=== PATIENT | female | born 1945 | race Caucasian/White ===

== ENCOUNTER 2018-03-04 12:21 | Emergency (ER) | payer OTHER ==
[2018-03-04] MEDS: KETOROLAC 60 MG INJ IM (15:13)
[2018-03-04] MEDS: DIPHTH/TET/ACEL PERTUSS (ADULT) 0.5 ML VIAL IM* (15:14)
== END 2018-03-04 15:35 | disposition home or self-care (01) ==
LOC: FTE 12:21
DX: S09.90XA Unspecified injury of head, initial encounter (principal); S13.9XXA Sprain of joints and ligaments of unspecified parts of neck, initial encounter; S80.211A Abrasion, right knee, initial encounter; S43.401A Unspecified sprain of right shoulder joint, initial encounter; S63.92XA Sprain of unspecified part of left wrist and hand, initial encounter; I10 Essential (primary) hypertension; R51 Headache; W01.0XXA Fall on same level from slipping, tripping and stumbling without subsequent striking against object, initial encounter; Y92.9 Unspecified place or not applicable; Z23 Encounter for immunization
CPT/HCPCS: 70450; 72125; 73030-RT; 73130-LT; 90471; 90715; 96372; 99285-25

== ENCOUNTER 2018-09-21 13:11 | Day surgery (SDC) | payer OTHER ==
[2018-09-21] MEDS ORDERED: MIDAZOLAM 1 MG/ML 2 ML INJ ×2 (16:42)
[2018-09-21] MEDS ORDERED: FENTAnyl 50 MCG/ML VIAL (16:42)
== END 2018-09-21 21:14 | disposition home or self-care (01) ==
LOC: GIL 13:11
DX: K21.0 Gastro-esophageal reflux disease with esophagitis (principal); K44.9 Diaphragmatic hernia without obstruction or gangrene; K29.00 Acute gastritis without bleeding; E78.00 Pure hypercholesterolemia, unspecified
CPT/HCPCS: 43239; 88305; 88312; 88313